=== PATIENT | male | born 1990 | race Caucasian/White ===

== ENCOUNTER 2018-06-01 08:11 | Emergency (ER) | payer SELFPAY ==
[~2018-06-01] VITALS: Ht 193 cm; Wt 95.5 kg
[~2018-06-01 08:11] MED LIST: FLOMAX 0.40.4 MG/CAP PO; HYTRIN 2MG CAPSU2 MG PO; NORCO 325 MG-51 TAB PO; REGLAN 10MG10 MG/TAB PO; ZOFRAN 4MG T4 MG/TAB PO
[2018-06-01 08:25] VITALS: TEMP 97
[2018-06-01 08:29] LABS: COLLECTION METHOD CLEAN CATCH
[2018-06-01 08:44] LABS: BASO # 0.1 (0.0-0.2); BASO % 0.7 % (0.0-2.0); EOS # 0.2 (0.0-0.7); EOS % 3.5 % (0-4.0); GRAN # 2.8 (1.4-6.5); GRAN % 40.7 % (42.2-75.2); HEMATOCRIT 40.4 % (42.0-52.0); LYMPH # 3.3 (1.2-3.4); LYMPH % 47.1 % (20.0-51.0); MEAN CELL VOLUME 87 fl (80.0-100.0); MEAN CORPUSCULAR HEMOGLOBIN 30 pg (27.0-31.0); MEAN CORPUSCULAR HGB CONC 35 g/dl (33.0-37.0); MEAN PLATELET VOLUME 9.7 fl (7.4-10.4); MONO # 0.5 (0.1-0.6); MONO % 7.7 % (1.7-9.3); PLATELET COUNT 304 K/mm3 (130-400); RED BLOOD COUNT 4.66 M/mm3 (4.20-5.60)
[2018-06-01 08:47] LABS: MUCOUS Present /lpf; PH 8 (5-8); SQUAMOUS EPITHELIAL 0-2 /hpf; URINE APPEARANCE Cloudy; URINE BACTERIA None Seen /hpf; URINE BILIRUBIN Negative (NEGATIVE); URINE BLOOD 2+ (NEGATIVE); URINE COLOR Yellow; URINE GLUCOSE Negative (NEGATIVE); URINE KETONE Negative (NEGATIVE); URINE LEUKOCYTE ESTERASE Negative (NEGATIVE); URINE NITRATE Negative (NEGATIVE); URINE PROTEIN(semi-quant) 2+ (NEGATIVE); URINE RBC >50 /hpf; URINE UROBILINOGEN Negative (NEGATIVE)
[2018-06-01 08:56] LABS: ALANINE AMINOTRANSFERASE 37 U/L (21-72); ALBUMIN 4.7 gm/dL (3.5-5.0); ALKALINE PHOSPHATASE 59 U/L (50-136); ANION GAP 11 mmol/L (7-16); AST,SGOT 24 U/L (15-37); BILIRUBIN,TOTAL 0.8 mg/dL (0.0-1.0); BLOOD UREA NITROGEN 13 mg/dL (9-20); CALCIUM 9.5 mg/dL (8.4-10.2); CARBON DIOXIDE 24 mmol/L (22-30); CHLORIDE 106 mmol/L (98-107); CREATININE, serum 1.06 mg/dL (0.66-1.25); GLUCOSE 122 mg/dL (74-106); POTASSIUM 3.4 mmol/L (3.4-5.0); SODIUM 140 mmol/L (137-145); TOTAL PROTEIN 7.9 gm/dL (6.4-8.2)
[2018-06-01 08:58] LABS: C-REACTIVE PROTEIN < 0.5 mg/dL (0.0-0.9)
[2018-06-01] MEDS ORDERED: NORCO 325 MG-51 TAB PO (09:40)
[2018-06-01 10:15] VITALS: BP 145/86; PULSE 72
== END 2018-06-01 10:16 | disposition home or self-care (01) ==
LOC: COL.ER 08:11
PROVIDERS: Physician Assistant
DX: N20.0 Calculus of kidney (principal); Z98.890 Other specified postprocedural states
CPT/HCPCS: J1170; J1885; J2405; J7030; Q9967